=== PATIENT | male | born 1955 | race Caucasian/White ===

== ENCOUNTER 2024-06-11 06:18 | Day surgery (SDC) | payer MEDICARE, SELFPAY ==
[2024-06-11 07:36] LABS: Glucose - Point of Care 148 mg/dl (70-99)
== END 2024-06-11 09:14 | disposition home or self-care (01) ==
LOC: GI 06:18
PROVIDERS: ATTENDING PHYSICIAN Surgery
DX: Z12.11 Encounter for screening for malignant neoplasm of colon (principal); K57.30 Diverticulosis of large intestine without perforation or abscess without bleeding; K64.9 Unspecified hemorrhoids; Z86.0100 Personal history of colon polyps, unspecified
CPT/HCPCS: G0105; 82962

== ENCOUNTER 2024-11-24 11:56 | Emergency (ER) | payer MEDICARE, SELFPAY ==
[2024-11-24 11:58] VITALS: BP 203/104
[2024-11-24 12:02] LABS: Glucose - Point of Care 220 mg/dl (70-99)
[2024-11-24 12:11] LABS: Urine Albumin 4+ (Neg - Trace); Urine Bilirubin Negative (Negative); Urine Character Bloody (Clear); Urine Color Red; Urine Glucose Negative (Negative); Urine Ketone Negative (Negative); Urine Leukocyte Negative (Negative); Urine Nitrite Negative (Negative); Urine Occult Blood 4+ (Negative); Urine Specific Gravity 1.015 (<1.030); Urine Urobilinogen Negative (Neg - 1+); Urine pH 6.5 (5.0-9.0)
[2024-11-24 12:27] LABS: Urine Red Blood Cell >100 /HPF (0-2)
[2024-11-24 12:28] LABS: Urine Bacteria Moderate (Negative)
[2024-11-24 13:23] VITALS: BP 171/95
[2024-11-24 13:25] VITALS: BMI 31.9
[2024-11-24 14:00] VITALS: BP 169/102
[2024-11-24 14:03] VITALS: BP 176/103
--- NOTE | 2024-11-24 14:11 | ED.GENMED ---
History of Present Illness
General
Chief Complaint: Male Genito-Urinary Symptoms
Source: patient and spouse
Time Seen by Provider: 11/24/24 14:01
History of Present Illness
History of Present Illness:
This patient Is a 69-year-old male who presents emergency department complaints of hematuria. He was perfectly well until this began at 10 AM today. He had a sensation that he needed to go to the bathroom, he had a normal brown bowel movement
without blood. He then felt a 'twinge' of pain in the right lower quadrant lasting 10 to 15 seconds followed by pressure in his penis area. He then passed what appeared to be mostly blood mixed with urine. Since that time he has had a few more
episodes of hematuria. He did have a momentary episode of 'cramping' in the left lower quadrant now resolved. He denies associated symptoms such as nausea, vomiting, flank pain, chest pain, dyspnea, fever, chills, sweats. He had an episode of
burning with urination before arrival here but no longer. Patient states that
Past History
Past History
ED Past Medical History: Asthma (but out grow), HTN, NIDDM and Other (Left lung pleurodesis for recurrent pneumothorax, Kidney stones)
ED Past Surgical History: Cholecystectomy, Urological and Other (Left lung pleurodesis)
Social History
Tobacco: Non-smoker
Alcohol: Occasional
Drug: None
Personal:
Living: with family
Family History
Family History: Other (Noncontributory)
Phy Exam
Physical Exam
Physical Exam:
GENERAL: Alert , in no apparent distress
EYE: pupils equal and reactive
NECK: Supple, no significant adenopathy.
ENT: o/p clr, mmm.
CARDIAC: Regular rate and rhythm .
LUNGS: Clear breath sounds bilaterally, no acute respiratory distress, no wheezes/rales/rhonchi
ABDOMEN: Soft, without focal tenderness, no r/g, no cvat
NEUROLOGICAL: Alert and oriented, no focal neuro deficits
SKIN: Warm and dry, skin intact.
MUSCULOSKELETAL: No edema, well perfused.
PSYCH: Normal and appropriate interaction.
no gross blood/bleeding, no lesions
Course
Orders/Labs/Results
Orders:
Orders
11/24/24 12:05
Urinalysis Reflex To Culture Urgent
Date Specimen was Collected: 11/24/24
Time Specimen was Collected: 12:02
Urine Microscopic Reflex Cult Urgent
Urine Culture Urgent
JEROME Source: U
Specimen Description:
Date Specimen was Collected: 11/24/24
Time Specimen was Collected: 12:02
11/24/24 13:30
Complete Blood Count/No Diff Urgent
Comprehensive Metabolic Panel Urgent
11/24/24 14:11
CT Abd/pel Without Iv Or Oral Stat
Comment:
Reason For Exam: hx stones, now hematuria
Abnormal Lab Results
11/24/24 11/24/24 11/24/24
12:00 12:05 13:30
BUN 21 H mg/dl
(9-20)
Creatinine 1.4 H mg/dL
(0.7-1.3)
Glucose 241 H mg/dl
(70-99)
Ur Occult Blood Reflex 4+ A
(Negative)
Urine RBC >100 A /HPF
(0-2)
Urine Bacteria (Reflex) Moderate A
(Negative)
Urine Albumin (Reflex) 4+ A
(Neg - Trace)
POC Glucose 220 H mg/dl
(70-99)
11/24/24 13:30
11/24/24 13:30
Vital Signs
Initial and Last Documented VS:
Initial Vital Signs
Temp Pulse Resp BP Pulse Ox
98.2 F 84 16 203/104 97
11/24/24 11:58 11/24/24 11:58 11/24/24 11:58 11/24/24 11:58 11/24/24 11:58
Last Documented Vital Signs
Temp Pulse Resp BP Pulse Ox
98.2 F 84 11 176/103 96
11/24/24 11:58 11/24/24 15:03 11/24/24 15:03 11/24/24 14:03 11/24/24 14:45
*Pulse Oximetry
SaO2: 97
Oxygen Mode of Delivery: Room air
Update Note
Update Note:
Patient presents to the Emergency Department with ___hematuria
Number and Complexity of Problems Addressed at the Encounter
� Chronic conditions affecting care:
� Acute Exacerbation and/or Progression of Chronic Illness:
� Differential Diagnosis includes:but not limited to uti, k stone, trauma, toxin, etc
Amount and/or Complexity of Data to be Reviewed and Analyzed
� I performed an independent evaluation of and my interpretation is:
EKG:
CT:SEVERELY ENLARGED PROSTATE GLAND causing chronic urinary bladder outlet obstruction.
2. 4.6 mm calculus in the urinary bladder.
3. Enlarging 3.7 cm LEFT RENAL CELL CARCINOMA.
4. 1.9 cm RIGHT RENAL CELL CARCINOMA.
5. Multiple simple and hemorrhagic renal cysts.
6. Mild to moderate chronic bilateral renal disease.
7. Moderate diffuse hepatic steatosis.
8. Mild hepatosplenomegaly.
9. Previous cholecystectomy.
10. Severe diverticulosis in the sigmoid colon.
Xrays:
Laboratory Studies: White blood cell count normal, creatinine at baselineWhite blood cell count normal white blood cell count normal, creatinine at baseline
Other:
� Review of other/old records reveals: hx bph surgery/turp, d/c reviewed
� Clinical information was obtained by an independent historian:
� Prescriptions/Medications Considered but not given:
� Further testing considered but not performed:
Risk of Complications and/or Morbidity or Mortality of Patient Management
� Social determinants of health affecting care:
� Discussion with other providers (PCP, Hospitalists, Consultants, etc):
� Escalation of care including admission/observation vs risk of discharge considered: PVR approx 200 ml. Case discussed with Dr. Gracia, aware of CAT scan report, symptoms here, labs, etc. Recommends patient stable for
discharge but needs to see Dr. Bass tomorrow and he will inform Dr. Bass of patient's diagnosis and need to be seen urgently tomorrow. I copied out the CAT scan report for patient and and handed it to them, did let them know that it is
consistent with carcinoma bilaterally, also discussed other findings. They will call the urology office and see them in the main. Patient is not experiencing retention, infectious symptoms, etc. No indications for antibiotics or further treatment
at this time as per Dr. Pedro.
ED Attending Note
-
Portions of this chart may have been created with voice recognition software.� Occasional wrong word or��sound alike� substitutions may have occurred due to the inherent limitations of voice recognition software.
Discharge Plan
Departure
Patient Disposition: Home (Routine Discharge)
Date of Disposition: 11/24/24
Time of Disposition: 16:17
Patient with high blood pressure during this ER visit?: Yes
Condition: Good
Discharge Problem:
Hematuria, Bladder calculi, Cancer of kidney
Instructions: Kidney stones in adults, Kidney cancer, Blood in the Urine (Hematuria), Adult (DC), BLOOD PRESSURE
Prescriptions:
No Action
losartan 50 MG tablet
100 mg PO HS
amlodipine 10 MG tablet
10 mg PO HS
clonidine 0.3 MG patch weekly
0.3 mg transdermal Q7D
Patient Comments:
on presently
labetalol 300 MG tablet
300 mg PO HS
insulin aspart U-100 [Novolog FlexPen U-100 Insulin] 100 unit/mL (3 mL) Insulin Pen
0 - 4.5 unit SC QID
Patient Comments:
Sliding Scale
ciprofloxacin HCl 250 mg tablet
250 mg PO BID 5 Days Qty: 10 0RF
phenazopyridine 200 mg tablet
200 mg PO Q12H PRN (Reason: dysuria) 3 Days Qty: 6 0RF
Referrals:
Donald Calloway MD [Active, Urology] - Tomorrow
UNKNOWN - PT DOES,NOT KNOW [Family Provider]
Activity Restrictions/Additional Instructions:
IS VERY IMPORTANT THAT YOU SEE THE UROLOGIST TOMORROW MORNING. PLEASE CALL THEM WHEN YOU WAKE UP TO ARRANGE FOR THIS. YOU HAVE NEW FINDINGS ON YOUR CAT SCAN, THAT REQUIRE PROMPT FOLLOW-UP. IF YOU HAVE ANY DIFFICULTY MEETING WITH A UROLOGIST,
PLEASE CONTACT YOUR PRIMARY CARE DOCTOR OR RETURN TO THE EMERGENCY DEPARTMENT. IF YOU DEVELOP FEVER, CHILLS, DIFFICULTY URINATING, VOMITING, ABDOMINAL PAIN, SWELLING, OR OTHER WORRISOME SIGNS, PLEASE RETURN TO THE ER IMMEDIATELY. AVOID USING
NONSTEROIDAL ANTI-INFLAMMATORY MEDICATION SUCH IBUPROFEN OR MOTRIN
Interventions
Interventions:
*Risk Screen - Suicide Last Done: 11/24/24 13:25
*General Assessment Last Done: 11/24/24 13:25
*Neglect/Abuse Screening Last Done: 11/24/24 13:25
*ED COVID-19 Vaccine History Last Done: 11/24/24 13:25
ED-Male Genitourinary Assessment Last Done: 11/24/24 13:25
Discharge Date and Time
Print Language: DJIBOUTIAN
[2024-11-24 15:09] LABS: Hematocrit 43.1 % (39.0-52.0); Hemoglobin 15.8 g/dL (13.0-18.0); Mean Corp Hgb Conc. 36.7 g/dL (33.0-37.0); Mean Corpuscular Hgb 29.5 pg (27.0-31.0); Mean Corpuscular Volume 80.4 fL (80.0-94.0); Platelet Count 211 10^3/uL (130-400); Red Blood Cell Count 5.36 10^6/uL (4.70-6.10); Red Cell Dist. Width 12.9 % (11.5-14.5); White Blood Cell Count 8.6 10^3/uL (4.8-10.8)
[2024-11-24 15:21] LABS: ALT (SGPT) 30 U/L (0-50); AST (SGOT) 19 U/L (17-59); Albumin 4.3 g/dl (3.5-5.0); Alkaline Phosphatase 68 U/L (38-126); Blood Urea Nitrogen 21 mg/dl (9-20); Carbon Dioxide 23 mmol/L (22-30); Chloride 105 mmol/L (98-107); Estimated Creatinine Clearance 61 ml/min; Glucose 241 mg/dl (70-99); Potassium 4.3 mmol/L (3.5-5.1); Sodium 137 mmol/L (135-145); Total Bilirubin 1.3 mg/dl (0.2-1.3); Total Protein 6.9 g/dl (6.3-8.2); eGFR 55.09
== END 2024-11-24 16:48 | disposition home or self-care (01) ==
LOC: EMR 11:56
PROVIDERS: Emergency Medicine; EMERGENCY PHYSICIAN Emergency Medicine
DX: R10.31 Right lower quadrant pain (principal); R31.9 Hematuria, unspecified; C64.2 Malignant neoplasm of left kidney, except renal pelvis; C64.1 Malignant neoplasm of right kidney, except renal pelvis; N21.0 Calculus in bladder; N32.0 Bladder-neck obstruction; K57.30 Diverticulosis of large intestine without perforation or abscess without bleeding; R16.2 Hepatomegaly with splenomegaly, not elsewhere classified; K76.0 Fatty (change of) liver, not elsewhere classified; I10 Essential (primary) hypertension; E11.9 Type 2 diabetes mellitus without complications; Z90.49 Acquired absence of other specified parts of digestive tract; Z88.8 Allergy status to other drugs, medicaments and biological substances; Z91.041 Radiographic dye allergy status
CPT/HCPCS: 99285; 51798; 74176; 80053; 81003; 81015; 82962; 85027; 87086

== ENCOUNTER → 2024-12-05 07:11 | Outpatient (REF) | payer MEDICARE, SELFPAY | LOC: MRI 07:11 | PROVIDERS: ATTENDING PHYSICIAN Surgery; FAMILY PHYSICIAN Family Medicine | DX: N28.89 Other specified disorders of kidney and ureter (principal) | CPT/HCPCS: 74183; A9575 ==

== ENCOUNTER → 2024-12-20 07:49 | Outpatient (REF) | payer MEDICARE, SELFPAY | LOC: RAD 07:49 | PROVIDERS: ATTENDING PHYSICIAN Urology; FAMILY PHYSICIAN Family Medicine | DX: N28.89 Other specified disorders of kidney and ureter (principal) | CPT/HCPCS: 71260; Q9967 ==

== ENCOUNTER → 2025-01-08 14:05 | Outpatient (REF) | payer MEDICARE, SELFPAY | LOC: RAD 14:05 | PROVIDERS: ATTENDING PHYSICIAN Otolaryngology; FAMILY PHYSICIAN Family Medicine | DX: R22.1 Localized swelling, mass and lump, neck (principal) | CPT/HCPCS: 70491; Q9967 ==

== ENCOUNTER → 2025-01-16 10:15 | Outpatient (REF) | payer MEDICARE, SELFPAY ==
[2025-01-16 10:54] LABS: INR 0.98; PT 13.5 Sec (11.4-14.6)
[2025-01-16 11:15] VITALS: BP 155/96; BP_SYST 75
[2025-01-16 12:10] VITALS: BP 160/88; BP_SYST 72
[2025-01-16 12:15] VITALS: BP 160/85; BP_SYST 69
[2025-01-16 12:20] VITALS: BP 152/89; BP_SYST 68
[2025-01-16 12:30] VITALS: BP 141/80; BP_SYST 64
== END ==
LOC: RADI 10:15
PROVIDERS: ATTENDING PHYSICIAN Otolaryngology; FAMILY PHYSICIAN Family Medicine; REFERRING PHYSICIAN Physician Assistant
DX: D21.0 Benign neoplasm of connective and other soft tissue of head, face and neck (principal)
CPT/HCPCS: 20206; 36415; 76942; 85610; 88173; 88305; 88313; 88333; 88341; 88342; 99152; 99153

== ENCOUNTER → 2025-02-14 09:37 | Outpatient (REF) | payer MEDICARE, SELFPAY ==
[2025-02-14 11:37] LABS: Hematocrit 42.9 % (39.0-52.0); Hemoglobin 15.5 g/dL (13.0-18.0); Mean Corp Hgb Conc. 36.1 g/dL (33.0-37.0); Mean Corpuscular Volume 79.4 fL (80.0-94.0); Platelet Count 229 10^3/uL (130-400); Red Cell Dist. Width 13.0 % (11.5-14.5)
[2025-02-14 12:04] LABS: Blood Urea Nitrogen 25 mg/dl (9-20); Calcium 10.5 mg/dl (8.4-10.2); Carbon Dioxide 26 mmol/L (22-30); Chloride 102 mmol/L (98-107); Glucose 259 mg/dl (70-99); Potassium 4.8 mmol/L (3.5-5.1); Sodium 137 mmol/L (135-145); eGFR 46.93
== END ==
LOC: SDSPAT 09:37
PROVIDERS: ATTENDING PHYSICIAN Urology; FAMILY PHYSICIAN Family Medicine
DX: Z01.818 Encounter for other preprocedural examination (principal)
CPT/HCPCS: 36415; 80048; 85027; 86850; 86900; 86901; 93005

== ENCOUNTER 2025-02-27 06:20 | Day surgery (SDC) | payer MEDICARE, SELFPAY ==
[2025-02-14 14:10] VITALS: BMI 30.3
--- NOTE | 2025-02-21 17:16 | PTCARENOTE ---
Abnormal value: Glucose 259 reported to Sona Wisdom (Dr. Chadwick's office). No further orders at this time.
[2025-02-27] VITALS (14 sets, daily range): BP systolic 118–166; BP diastolic 78–94; BMI 30.3
[2025-02-27 08:56] LABS: Glucose - Point of Care 278 mg/dl (70-99)
[2025-02-27] MEDS: NORMOSOL-R/PLASMALYTE-A 1000 IV ×2 (09:11→17:23)
[2025-02-27] MEDS: NOVOLOG vial 2 UNITS SC (09:48)
[2025-02-27 10:25] LABS: Glucose - Point of Care 257 mg/dl (70-99)
[2025-02-27 12:01] LABS: Glucose - Point of Care 200 mg/dl (70-99)
[2025-02-27 13:03] LABS: Glucose - Point of Care 197 mg/dl (70-99)
[2025-02-27 14:03] LABS: Glucose - Point of Care 197 mg/dl (70-99)
--- NOTE | 2025-02-27 15:05 | W.IMMPOSTOP ---
Surgical Immed Post Op Note
-
Primary Surgeon: Deucefer
Assisting Surgeon:
Pre-op Diagnosis: L renal mass
Post-op Diagnosis: same
Procedure Performed: L robotic partial nephrectomy
Anesthesia Type: general
Specimen / Cultures: L renal mass, cyst wall
Estimated Blood Loss: 280cc
Complications: none
Operative Findings: -
[2025-02-27 15:21] LABS: Glucose - Point of Care 203 mg/dl (70-99)
[2025-02-27 15:28] LABS: Hematocrit 39.4 % (39.0-52.0); Hemoglobin 14.3 g/dL (13.0-18.0); Mean Corp Hgb Conc. 36.3 g/dL (33.0-37.0); Mean Corpuscular Volume 81.2 fL (80.0-94.0); Platelet Count 221 10^3/uL (130-400); Red Cell Dist. Width 12.7 % (11.5-14.5)
[2025-02-27] MEDS: NOVOLOG vial 1 UNITS SC (15:29)
[2025-02-27 15:49] LABS: Blood Urea Nitrogen 23 mg/dl (9-20); Calcium 8.4 mg/dl (8.4-10.2); Carbon Dioxide 25 mmol/L (22-30); Chloride 101 mmol/L (98-107); Estimated Creatinine Clearance 49 ml/min; Glucose 201 mg/dl (70-99); Potassium 5.0 mmol/L (3.5-5.1); Sodium 133 mmol/L (135-145); eGFR 43.64
[2025-02-27] MEDS: DILAUDID 0.25 MG IV (16:16)
--- NOTE | 2025-02-27 16:51 | PTCARENOTE ---
Received pt from PACU, VSS, 2Lo2, birmingham draining clear yellow, AAOx3, drowsy but arousable, admission complete. Pt and oriented to call vizcarra and room, pt resting comfortably in bed at this time.
[2025-02-27 17:11] LABS: Glucose - Point of Care 234 mg/dl (70-99)
[2025-02-27] MEDS: DILAUDID 1 MG IV ×2 (17:18→20:47)
[2025-02-27] MEDS: NOVOLOG FLEXPEN-MODERATE RESISTANCE 3 UNITS SC (17:25)
[2025-02-27] MEDS: SENOKOT 17.2 MG PO (20:41)
[2025-02-27 21:32] LABS: Glucose - Point of Care 254 mg/dl (70-99)
[2025-02-27] MEDS: LANTUS 0.11 UNITS SC (22:10)
[2025-02-27] MEDS: TRANDATE 300 MG PO (22:13)
[2025-02-27] MEDS: PEPCID 20 MG PO (22:15)
[2025-02-27] MEDS: COZAAR 100 MG PO (22:15)
[2025-02-27] MEDS: NORVASC 10 MG PO (22:16)
[2025-02-28] MEDS: NORMOSOL-R/PLASMALYTE-A 1000 IV (01:17)
[2025-02-28] MEDS: DILAUDID 1 MG IV (01:23)
[2025-02-28 03:32] VITALS: BP 124/76
[2025-02-28 06:13] LABS: Hematocrit 35.4 % (39.0-52.0); Hemoglobin 12.9 g/dL (13.0-18.0); Mean Corp Hgb Conc. 36.4 g/dL (33.0-37.0); Mean Corpuscular Volume 81.8 fL (80.0-94.0); Platelet Count 221 10^3/uL (130-400); Red Cell Dist. Width 12.8 % (11.5-14.5)
[2025-02-28 06:37] LABS: Blood Urea Nitrogen 33 mg/dl (9-20); Calcium 8.3 mg/dl (8.4-10.2); Carbon Dioxide 22 mmol/L (22-30); Chloride 100 mmol/L (98-107); Estimated Creatinine Clearance 44 ml/min; Glucose 286 mg/dl (70-99); Potassium 4.8 mmol/L (3.5-5.1); Sodium 130 mmol/L (135-145); eGFR 38.19
[2025-02-28 07:21] VITALS: BP 131/79
[2025-02-28 07:26] LABS: Glucose - Point of Care 274 mg/dl (70-99)
[2025-02-28] MEDS: NOVOLOG FLEXPEN-MODERATE RESISTANCE 5 UNITS SC (07:37)
[2025-02-28] MEDS: SENOKOT 17.2 MG PO ×2 (07:37→20:55)
[2025-02-28 08:07] LABS: Glycohemoglobin (HgbA1c) 8.4 % (4.0-5.6)
--- NOTE | 2025-02-28 09:02 | W.PN.URO.CBU ---
Today's Communication / Plan
-
- OOB/IS
- reg diet
-ambulate
- wean O2
Discharge likely today
Assessment / Plan
-
POD 1 s/p L partial nephrectomy
- OOB/IS
- reg diet
- ambulate
- wean O2
- b[place] out
- Discussed getting better blood sugar control with his endo
- Expected creat bump. Repeat BMP before follow up
Discharge likely today
Diagnosis
-
Date of Service: February 28, 2025
-
Patient Diagnosis:
L renal mass
BHD
Mild post op anemia - dilutional and expected drop
CKD with EDGARDO due to surgery
Post Op Day:
Subjective
-
has not amb yet
tolerating diet
b[place] removed - was clear
pain controlled
Objective
-
Vital Signs
Temp Pulse Resp BP Pulse Ox
98.3 F 89 18 131/79 96
02/28/25 07:21 02/28/25 07:21 02/28/25 07:21 02/28/25 07:21 02/28/25 07:21
Intake and Output
02/27/25 02/28/25 03/01/25
06:59 06:59 06:59
Intake Total 700 / 700 240 / 240
Output Total 925 / 925 200 / 200
Balance -225 / -225 40 / 40
Intake:
Oral fluids 100 / 100 240 / 240
IV fluids (Total) 600 / 600
Normosol 300 / 300
Output:
Urine, [place] 925 / 925
Urine, Voided 200 / 200
Laboratory Results
02/28/25 05:42
02/28/25 05:42
Physical Exam
-
General - well developed, well nourished, no acute distress
Chest - clear, O2 on
Abdomen - soft, non-tender, positive bowel sounds, no CVAT, no incisional pain or distention
Extremities - no clubbing, no cyanosis, no edema
Incision - clean, dry
Dressing - clean, dry, intact
[2025-02-28] MEDS: TYLENOL 650 MG PO (09:23)
--- NOTE | 2025-02-28 10:47 | CM ---
Initial assessment completed with patient with in room. Patient lives with his in a 1 story ranch style home with basement, 3 steps to enter. W[employer] ROOM WORK[employer] patient was independent in ADL's and ambulation, drives. In the home there is a RW, Quad
cane, SPC, oximeter, B/P machine. No in-home services. Does have a HC-POA. No VA benefits. No psychiatric hospitalizations. PCP is Dr. Alfonso Oshea. Pharmacy is [facility] on [address] in [place]. Discharge POC: BISI PHAM RN. Awaiting therapy eval. May
need PT/OT also.
[2025-02-28 11:33] VITALS: BP 134/83
[2025-02-28 12:04] LABS: Glucose - Point of Care 335 mg/dl (70-99)
[2025-02-28] MEDS: NOVOLOG FLEXPEN-MODERATE RESISTANCE 7 UNITS SC (12:10)
[2025-02-28] MEDS: PERCOCET 5/325 2 TABLET PO ×2 (14:06→23:15)
[2025-02-28 15:17] VITALS: BP 128/73
[2025-02-28 17:13] LABS: Glucose - Point of Care 372 mg/dl (70-99)
[2025-02-28] MEDS: NOVOLOG FLEXPEN-MODERATE RESISTANCE 9 UNITS SC (17:16)
[2025-02-28 21:46] LABS: Glucose - Point of Care 375 mg/dl (70-99)
[2025-02-28] MEDS: LANTUS 0.11 UNITS SC (21:49)
[2025-02-28] MEDS: COZAAR 100 MG PO (21:57)
[2025-02-28] MEDS: NORVASC 10 MG PO (21:58)
[2025-02-28] MEDS: PEPCID 20 MG PO (21:58)
[2025-02-28] MEDS: TRANDATE 300 MG PO (21:58)
[2025-02-28 23:12] VITALS: BP 139/80
[2025-03-01 06:00] VITALS: BMI 30.5
[2025-03-01 07:37] LABS: Hematocrit 38.3 % (39.0-52.0); Hemoglobin 13.8 g/dL (13.0-18.0); Mean Corp Hgb Conc. 36.0 g/dL (33.0-37.0); Mean Corpuscular Volume 82.5 fL (80.0-94.0); Platelet Count 216 10^3/uL (130-400); Red Cell Dist. Width 13.2 % (11.5-14.5)
[2025-03-01 07:41] LABS: Glucose - Point of Care 283 mg/dl (70-99)
[2025-03-01 07:42] VITALS: BP 139/84
[2025-03-01 08:17] LABS: Blood Urea Nitrogen 35 mg/dl (9-20); Calcium 9.1 mg/dl (8.4-10.2); Carbon Dioxide 25 mmol/L (22-30); Chloride 101 mmol/L (98-107); Estimated Creatinine Clearance 42 ml/min; Glucose 241 mg/dl (70-99); Potassium 4.4 mmol/L (3.5-5.1); Sodium 135 mmol/L (135-145); eGFR 35.91
[2025-03-01] MEDS: SENOKOT 17.2 MG PO (08:26)
[2025-03-01] MEDS: NOVOLOG FLEXPEN-MODERATE RESISTANCE 5 UNITS SC ×2 (08:26→11:42)
--- NOTE | 2025-03-01 09:18 | W.DCSUMMARY ---
Discharge Summary
Discharge Data
Date of Admission: 02/27/25
Date of Discharge: 03/01/25
-
Pending Results: Yes
Additional Pending Results:
path report
Hospital Course
the pt underwent a left partial robotic nephrectomy He reamined stable with min pain He is being d/cd this am
Discharge Plan
-
Patient Disposition: Home (Routine Discharge)
Discharge Diagnosis/Procedures: L renal mass
Robotic L partial nephrectomy
Condition: Good
Diet: No restrictions
Activity: No strenuous activity
Additional Activity: avoid lifting, straining, strenuous activity for 4 weeks
[address]riving Restrictions: As prior to admission
Bathing Restrictions: OK to Shower
Wound Care: gently rinse incisions in the shower
Activity Restrictions/Additional Instructions:
Take tylenol or percocet (sent to pharmacy) as needed for pain
Take a stool softener like miralax or senna twice daily until having regular bowel movements
Some blood in urine may be seen off and on, but if having large amount of clots or unable to urinate, call or go to the ER
The office will call to schedule a follow up appointment in 2-3 weeks
Orders were sent to [facility] for blood work which you should complete 3-5 days before your appointment
Referrals:
Alfonso Oshea MD [Family Provider, Family Practice]
Prescriptions:
New
oxycodone-acetaminophen 5-325 mg Tablet
1 tab PO Q4HPRN PRN (Reason: moderate pain) Qty: 10 0RF
Continued
losartan 50 MG tablet
100 mg PO HS
amlodipine 10 MG tablet
10 mg PO HS
clonidine 0.3 MG patch weekly
0.3 mg transdermal Q7D
labetalol 300 MG tablet
300 mg PO HS
insulin aspart U-100 [Novolog FlexPen U-100 Insulin] 100 unit/mL (3 mL) Insulin Pen
0 - 8 unit SC QID
Patient Comments:
Sliding Scale- patient took 7 units
insulin glargine [Basaglar KwikPen U-100 Insulin] 100 unit/mL (3 mL) Insulin Pen
11 unit SC HS
Patient Comments:
Took 11 units
famotidine [Pepcid] 40 mg Tablet
40 mg PO HS
Vitamin C
1 dose PO DAILY
fluticasone propionate 50 mcg/actuation [place],Suspension
1 spray INTRANASAL DAILY PRN (Reason: congestion)
Vitamin D3
1 dose PO DAILY
Zinc Calcium Magnesium
1 dose PO DAILY
vitamin E
1 dose PO DAILY
Discharge Date and Time
Print Language: HUNGARIAN
--- NOTE | 2025-03-01 10:05 | PTCARENOTE ---
Patient OOB, ambulating in halls with a steady gait. Patient tolerating 100% of am meal. Patient denies need for pain med at present. patient c/o abdominal tenderness. Patient is passing flatus, no BM at present. Spouse at bedside.
--- NOTE | 2025-03-01 10:35 | CM ---
CM following re: discharge planning.
Reviewed pt's chart, met with pt and pt's spouse at bedside.
Discharge order noted. Both pt and his spouse are aware, expressed heir agreement with discharge and they requested [facility] services. Pt still SDC status.
A referral to [facility] noted, pt is accepted for after care [facility] services.
Please fax discharge instructions to [facility] at [phone]
D/C plan: home with [facility] and family support. Spouse to transport
[2025-03-01 11:19] VITALS: BP 133/81
[2025-03-01 11:42] LABS: Glucose - Point of Care 288 mg/dl (70-99)
== END 2025-03-01 12:42 | disposition home or self-care (01) ==
LOC: SDS 06:20
PROVIDERS: ATTENDING PHYSICIAN Urology; FAMILY PHYSICIAN Family Medicine
DX: D30.02 Benign neoplasm of left kidney (principal); N28.1 Cyst of kidney, acquired
CPT/HCPCS: 50543; 71045; 80048; 82962; 83036; 85027; 86900; 86901; 86920; 88304; 88307; 88341; 88342

== ENCOUNTER 2025-04-26 20:25 | Emergency (ER) | payer MEDICARE, SELFPAY ==
[2025-04-26 20:34] VITALS: BP 170/102
[2025-04-26 21:06] LABS: Hematocrit 44.5 % (39.0-52.0); Hemoglobin 16.0 g/dL (13.0-18.0); Mean Corp Hgb Conc. 36.0 g/dL (33.0-37.0); Mean Corpuscular Volume 81.7 fL (80.0-94.0); Nucleated Red Blood Cells % 0 % (-); Platelet Count 253 10^3/uL (130-400); Red Cell Dist. Width 13.1 % (11.5-14.5)
[2025-04-26 21:07] LABS: Urine Character Clear (Clear)
[2025-04-26 21:21] LABS: Urine Squamous Cell 0-2 /LPF (Few)
[2025-04-26 21:22] LABS: Urine Red Blood Cell 0-2 /HPF (0-2); Urine White Cell 0-2 /HPF (0-5)
[2025-04-26 21:28] LABS: ALT (SGPT) 36 U/L (0-50); AST (SGOT) 19 U/L (17-59); Albumin 4.9 g/dl (3.5-5.0); Alkaline Phosphatase 70 U/L (38-126); Blood Urea Nitrogen 26 mg/dl (9-20); Calcium 9.7 mg/dl (8.4-10.2); Carbon Dioxide 29 mmol/L (22-30); Chloride 100 mmol/L (98-107); Glucose 146 mg/dl (70-99); Potassium 4.4 mmol/L (3.5-5.1); Sodium 136 mmol/L (135-145); Total Protein 8.1 g/dl (6.3-8.2); eGFR 38.19
[2025-04-26 21:30] VITALS: BP 175/98
--- NOTE | 2025-04-26 21:56 | ED.GENMED ---
History of Present Illness
General
Chief Complaint: Abdominal Pain
Time Seen by Provider: 04/26/25 21:45
History of Present Illness
History of Present Illness:
69-year-old male presents to the emergency department for evaluation of left lower quadrant abdominal pain that has been ongoing for the past 2 to 3 days. Pain is sharp and worsens whenever he is upright or moving. Denies any associated nausea
vomiting or diarrhea. Has had kidney stones in the past and pain feels distinctly different. He has 2-month status post left partial nephrectomy for renal cell carcinoma and has been doing well postoperatively. Denies dysuria or hematuria
Past History
Past History
ED Past Medical History: Asthma (but out grow), HTN, NIDDM and Other (Left lung pleurodesis for recurrent pneumothorax, Kidney stones)
ED Past Surgical History: Cholecystectomy, Urological and Other (Left lung pleurodesis)
Social History
Tobacco: Non-smoker
Alcohol: Occasional
Drug: None
Personal:
Living: with family
Family History
Family History: Other (Noncontributory)
Review of Systems
Review of Systems
Allergies reviewed?: Yes
All Other Systems: ROS reviewed and negative except as documented in HPI and ROS
Phy Exam
Physical Exam
Physical Exam:
GEN: Well appearing, NAD, WDWN
HEENT: Oral mucosa moist, no scleral icterus
Cardiac: Regular rate
Lung: No respiratory distress, no tachypnea
Abdomen: Soft, moderate left lower quadrant tenderness, no rigidity or peritoneal signs. Surgical incisions are well-approximated
MSK: No gross deformity or injuries
Skin: Good color, no pallor or jaundice, no rashes
Neuro: AO x3, moves all extremities freely
Psych: Calm, cooperative
Course
Orders/Labs/Results
Orders:
Orders
04/26/25 20:50
Complete Blood Count/With Diff Urgent
Comprehensive Metabolic Panel Urgent
Urine Culture Urgent
JEROME Source: U
Specimen Description:
Date Specimen was Collected: 04/26/25
Time Specimen was Collected: 20:41
Comment: ADDED
04/26/25 20:56
Urinalysis Urgent
Date Specimen was Collected: 04/26/25
Time Specimen was Collected: 20:41
Urine Microscopic Urgent
Date Specimen was Collected: 04/26/25
Time Specimen was Collected: 20:41
04/26/25 21:55
Iohexol [Omnipaque] See Protocol PO NOW STA
04/26/25 22:48
HYDROmorphone [Dilaudid] 0.5 mg IV NOW STA
04/26/25 23:00
Insulin Glargine Lantus [Lantus] 11 units Subcutaneous Insulin Syringe [Syringe-Insulin] 0 unit SC ONCE
04/26/25 23:46
Insulin Aspart [NOVOLOG vial] 3 units SC NOW STA
Insulin Glargine Lantus [Lantus] 11 units Subcutaneous Insulin Syringe [Syringe-Insulin] 0 unit SC ONCE
04/27/25 00:05
CT Abd/pel (oral only)-DH Only Urgent
Reason For Exam: LLQ pain
04/27/25 01:21
Amoxicillin 875 mg/Clav 125 mg [Augmentin 875 mg/125 mg] 1 tablet PO NOW STA
Oxycodone [Roxicodone] 5 mg PO NOW STA
04/27/25 01:22
Add On - Microbiology Urgent
Tests Added?: urine culture
Abnormal Lab Results
04/26/25 04/26/25
20:50 20:56
Abs Immat Gran (auto) 0.1 H 10^3/uL
(0-0.05)
Absolute Neuts (auto) 7.4 H 10^3/uL
(1.4-6.5)
Absolute Monos (auto) 0.8 H 10^3/uL
(0.1-0.6)
Lymphocytes % 16.7 L %
(20.5-51.1)
BUN 26 H mg/dl
(9-20)
Creatinine 1.9 H mg/dL
(0.7-1.3)
Glucose 146 H mg/dl
(70-99)
Urine Occult Blood 1+ A
(Negative)
Urine Bacteria Few A
(Negative)
Urine Albumin 3+ A
(Neg - Trace)
04/26/25 20:50
04/26/25 20:50
Vital Signs
Initial and Last Documented VS:
Initial Vital Signs
Temp Pulse Resp BP Pulse Ox
97.8 F 100 24 170/102 96
04/26/25 20:34 04/26/25 20:34 04/26/25 20:34 04/26/25 20:34 04/26/25 20:34
Last Documented Vital Signs
Temp Pulse Resp BP Pulse Ox
97.8 F 80 15 165/92 96
04/26/25 20:34 04/27/25 01:30 04/27/25 01:30 04/27/25 00:00 04/26/25 21:57
MDM/Problems Addressed
MDM/Problems Addressed:
Imaging does not reveal an obvious pathology. He does have some left perinephric stranding given concern for pyelonephritis however in the absence of leukocytosis or pyuria this is not supremely likely. No obvious evidence of acute diverticulitis.
Given the perinephric stranding and his relatively recent surgery will cover with a course of Augmentin, did discuss that this may be a musculoskeletal etiology given the movement related pain. Discussed supportive care otherwise and ED return
parameters
*Pulse Oximetry
SaO2: 96
Patient hypoxic: no
*Critical Care Note
Total Time (30-74mins, 75-104mins- exclusive of procedures): Not Applicable
ED Attending Note
-
Portions of this chart may have been created with voice recognition software.� Occasional wrong word or��sound alike� substitutions may have occurred due to the inherent limitations of voice recognition software.
Discharge Plan
Departure
Patient Disposition: Home (Routine Discharge)
Date of Disposition: 04/27/25
Time of Disposition: 01:18
Patient with high blood pressure during this ER visit?: No
Discharge Problem:
Acute left lower quadrant pain
Instructions: Abdominal Pain
Prescriptions:
New
amoxicillin-pot clavulanate 875-125 mg tablet
1 tab PO BID 7 Days Qty: 14 0RF
oxycodone 5 mg tablet
5 mg PO Q8H PRN (Reason: Pain) Qty: 8 0RF
No Action
losartan 50 MG tablet
100 mg PO HS
amlodipine 10 MG tablet
10 mg PO HS
clonidine 0.3 MG patch weekly
0.3 mg transdermal Q7D
labetalol 300 MG tablet
300 mg PO HS
insulin aspart U-100 [Novolog FlexPen U-100 Insulin] 100 unit/mL (3 mL) Insulin Pen
0 - 8 unit SC QID
Patient Comments:
Sliding Scale- patient took 7 units
insulin glargine [Basaglar KwikPen U-100 Insulin] 100 unit/mL (3 mL) Insulin Pen
11 unit SC HS
Patient Comments:
Took 11 units
famotidine [Pepcid] 40 mg Tablet
40 mg PO HS
Vitamin C
1 dose PO DAILY
fluticasone propionate 50 mcg/actuation [place],Suspension
1 spray INTRANASAL DAILY PRN (Reason: congestion)
Vitamin D3
1 dose PO DAILY
Zinc Calcium Magnesium
1 dose PO DAILY
vitamin E
1 dose PO DAILY
oxycodone-acetaminophen 5-325 mg Tablet
1 tab PO Q4HPRN PRN (Reason: moderate pain) Qty: 10 0RF
Referrals:
Alfonso Oshea MD [Family Provider, Family Practice]
Interventions
Interventions:
*Risk Screen - Suicide Last Done: 04/26/25 20:34
*General Assessment Last Done: 04/27/25 01:37
*Neglect/Abuse Screening Last Done: 04/26/25 20:34
*ED- Fall Risk Assessment Last Done: 04/27/25 01:37
*ED COVID-19 Vaccine History Last Done: 04/27/25 01:37
*ED Influenza Vaccine History Last Done: 04/27/25 01:37
*Nursing Disposition Last Done: 04/27/25 01:37
YA-Xwneex-Zqlqmbagda Assessment Last Done: 04/26/25 21:36
Discharge Date and Time
Discharge Date/Time: 04/27/25 01:50
Print Language: SETSWANA
[2025-04-26 22:00] VITALS: BP 157/93
[2025-04-26] MEDS: OMNIPAQUE 50 ML PO (22:04)
[2025-04-26] MEDS: DILAUDID 0.5 MG IV (22:53)
[2025-04-26 23:00] VITALS: BP 149/87
[2025-04-26] MEDS: NOVOLOG vial 3 UNITS SC (23:55)
[2025-04-27] VITALS: BP 165/92
[2025-04-27] MEDS: LANTUS 0.11 UNITS SC (00:25)
[2025-04-27] MEDS: ROXICODONE 5 MG PO (01:30)
[2025-04-27] MEDS: AUGMENTIN 875 MG/125 MG 1 TABLET PO (01:31)
== END 2025-04-27 01:50 | disposition home or self-care (01) ==
LOC: EMR 20:25
PROVIDERS: Emergency Medicine; EMERGENCY PHYSICIAN Student in an Organized Health Care Education/Training Program; FAMILY PHYSICIAN Family Medicine
DX: R10.32 Left lower quadrant pain (principal); E11.9 Type 2 diabetes mellitus without complications; I10 Essential (primary) hypertension; Z79.4 Long term (current) use of insulin; Z85.528 Personal history of other malignant neoplasm of kidney; Z90.5 Acquired absence of kidney; Z87.442 Personal history of urinary calculi
CPT/HCPCS: 99284; 96374; 96372 ×2; 74176; 80053; 81003; 81015; 85025; 87086